=== PATIENT | male | born 1935 | race Caucasian/White ===

== ENCOUNTER 2021-11-11 06:40 | Observation (INO) ==
[2021-11-11] MEDS ORDERED: Ringers Solution, Lactated 1,000 ML IVC SCH (07:30)
[2021-11-11] MEDS ORDERED: *HR* Succinylcholine 200 MG/10 ML VIAL IVP ONE (07:44)
[2021-11-11] MEDS ORDERED: Ondansetron 4 MG/2 ML VIAL ONE (07:44)
[2021-11-11] MEDS ORDERED: *HR* Rocuronium Bromide 50 MG/5 ML VIAL ONE ×2 (07:44→10:53)
[2021-11-11] MEDS ORDERED: Lidocaine -MPF 2% 5 ML VIAL ONE (07:44)
[2021-11-11] MEDS ORDERED: *HR* FentaNYL (PF) 100 MCG/2 ML VIAL ONE (07:45)
[2021-11-11] MEDS ORDERED: *HR* Propofol 200 MG/20 ML VIAL IVP ONE (07:45)
[2021-11-11] MEDS ORDERED: *HR* OxyCODONE Immed Rel 5 MG TABLET PO PRN (08:07)
[2021-11-11] MEDS ORDERED: Ondansetron 4 MG/2 ML VIAL IVP PRN (08:07)
[2021-11-11] MEDS ORDERED: *HR* HYDROmorphone PF 0.5 MG/0.5 ML SYRINGE IVP PRN (08:07)
[2021-11-11] MEDS ORDERED: Heparin 1,000 UNITS/500 mL 500 ML ONE (08:15)
[2021-11-11] MEDS ORDERED: Gentamicin 80 MG/2 ML VIAL IM ONE (08:46)
[2021-11-11] MEDS ORDERED: CefOXitin 2,000 MG VIAL ONE (09:20)
[2021-11-11] MEDS ORDERED: *HR* Phenylephrine 10 MG/ML VIAL ONE (09:31)
[2021-11-11] MEDS ORDERED: Naloxone 0.4 MG/ML INJ IVP PRN (14:55)
[2021-11-11] MEDS: Ringers Solution, Lactated 1,000 ML IVC SCH ×2 (15:11→18:05)
[2021-11-11] MEDS: *HR* HYDROmorphone (PF) 1 MG/ML SYRINGE IVP PRN ×2 (15:16→19:58)
[2021-11-11] MEDS: Pantoprazole 40 MG VIAL IVP SCH (17:32)
[2021-11-11] MEDS: Ampicillin/Sulbactam 1,500 MG in 0.9 % Sodium Chloride Mini Bag 100 ML IVPB SCH (17:37)
[2021-11-12] MEDS: Ampicillin/Sulbactam 1,500 MG in 0.9 % Sodium Chloride Mini Bag 100 ML IVPB SCH ×4 (00:08→17:08)
[2021-11-12] MEDS: Ringers Solution, Lactated 1,000 ML IVC SCH ×2 (02:19→10:17)
[2021-11-12 04:57] LABS: Hematocrit 41.3 % (37.5-50.1); Hemoglobin 14.1 g/dL (12.9-16.9); Mean Corpuscular HGB Conc 34.1 g/dL (31.6-35.5); Mean Corpuscular Hemoglobin 32.7 pg (28.0-33.3); Mean Corpuscular Volume 95.8 fL (83.0-100.0); Platelet Count 123 K/mcL (140-400); Red Blood Count 4.31 M/mcL (4.19-5.50); Red Cell Distribution Width 12.3 % (11.5-14.5); White Blood Count 11.3 K/mcL (4.3-11.1)
[2021-11-12 05:28] LABS: Calcium 8.4 mg/dL (8.6-10.3); Potassium 4.3 mEq/L (3.5-5.1)
[2021-11-12] MEDS: Pantoprazole 40 MG VIAL IVP SCH ×2 (05:49→17:08)
[2021-11-12] MEDS: lisinopriL 5 MG TABLET PO SCH (07:25)
[2021-11-12] MEDS: Isosorbide MONOnitrate (24 HR) 30 MG TAB.ER.24H PO SCH (08:05)
[2021-11-12] MEDS: *HR* HYDROmorphone (PF) 1 MG/ML SYRINGE IVP PRN (08:14)
[2021-11-12] MEDS ORDERED: Furosemide 20 MG/2 ML VIAL IVP ONE (14:05)
[2021-11-12] MEDS ORDERED: Ondansetron 4 MG/2 ML VIAL IVP PRN (14:34)
[2021-11-12] MEDS ORDERED: Ondansetron 4 MG/2 ML VIAL IVP SCH (18:00)
[2021-11-13] MEDS: Ampicillin/Sulbactam 1,500 MG in 0.9 % Sodium Chloride Mini Bag 100 ML IVPB SCH ×2 (00:46→06:29)
[2021-11-13] MEDS: Pantoprazole 40 MG VIAL IVP SCH (06:29)
[2021-11-13 06:48] VITALS: TEMP 97.5
[2021-11-13 08:45] LABS: Basophils % 0.4 %; Eosinophils # 0.2 K/mcL (0.0-0.6); Eosinophils % 2.9 %; Hematocrit 38.8 % (37.5-50.1); Hemoglobin 13.1 g/dL (12.9-16.9); Immature Granulocytes % 0.4 % (0-4); Lymphocytes % 14.6 %; Mean Corpuscular HGB Conc 33.8 g/dL (31.6-35.5); Mean Corpuscular Hemoglobin 32.4 pg (28.0-33.3); Mean Platelet Volume 8.9 fL (9.4-12.4); Monocytes # 0.9 K/mcL (0.0-1.3); Monocytes % 12.5 %; Neutrophils # 4.7 K/mcL (1.6-8.9); Platelet Count 112 K/mcL (140-400); Red Blood Count 4.04 M/mcL (4.19-5.50); Red Cell Distribution Width 12.6 % (11.5-14.5); Segmented Neutrophils % 69.2 %; White Blood Count 6.8 K/mcL (4.3-11.1)
[2021-11-13 09:04] LABS: Calcium 8.6 mg/dL (8.6-10.3); Magnesium 1.9 mg/dL (1.6-2.6); Phosphorous 2.2 mg/dL (2.7-4.5); Potassium 3.9 mEq/L (3.5-5.1)
[2021-11-13] MEDS: Isosorbide MONOnitrate (24 HR) 30 MG TAB.ER.24H PO SCH (09:39)
[2021-11-13] MEDS: lisinopriL 5 MG TABLET PO SCH (09:39)
[2021-11-13 10:32] VITALS: BP 113/66; PULSE 61; O2SAT 94
[2021-11-15] MEDS ORDERED: Ergocalciferol (VIT D2) 50,000 UNIT (1.25MG) CAP PO SCH (09:00)
== END 2021-11-13 13:22 | disposition home health service (06) ==
LOC: SAMDAY 06:40 → 3BNU 06:40 → SUATTDRO 12:32
PROVIDERS: ADMIT Internal Medicine; ATTEND Internal Medicine